=== PATIENT | female | born 1945 | race Caucasian/White ===

== ENCOUNTER 2018-04-01 06:10 | Day surgery (SDC) | payer MEDICARE, BC ==
[2018-04-01] MEDS ORDERED: PROVENTIL HFA 6.7GM INHALER (07:00)
[2018-04-01] MEDS ORDERED: PROPOFOL 40 ML (07:26)
[2018-04-01] MEDS ORDERED: ONDANSETRON 4 MG INJ (07:27)
[2018-04-01] MEDS ORDERED: MIDAZOLAM 1 MG/ML 2 ML INJ (07:27)
[2018-04-01] MEDS ORDERED: FENTAnyl 50 MCG/ML VIAL (07:27)
[2018-04-01] MEDS ORDERED: LIDOCAINE 2% (SDV) 5 ML INJ (07:27)
[2018-04-01] MEDS ORDERED: LABETALOL HCL 20MG INJ IV (07:30)
[2018-04-01] MEDS ORDERED: DIPHENHYDRAMINE 50 MG INJ IV (07:30)
[2018-04-01] MEDS ORDERED: ALBUTEROL 0.083% (NEB) 2.5 MG/3 ML AMP HHN (07:30)
[2018-04-01] MEDS ORDERED: HYDROmorphONE 1 MG/5 ML IV SYRINGE IV (07:30)
[2018-04-01] MEDS: BUPIVACAINE 0.5% (MPF) 30 ML INJ INJ (07:30)
[2018-04-01] MEDS ORDERED: morphine (1 MG/ML) 10ML SYRINGE IV ×2 (07:30)
[2018-04-01] MEDS ORDERED: FENTAnyl 50 MCG/ML VIAL IV ×2 (07:30)
[2018-04-01] MEDS ORDERED: MEPERIDINE 25 MG INJ IV (07:30)
[2018-04-01] MEDS ORDERED: OXYCODONE/ACETAMINOPHEN (5/325) TAB PO ×2 (07:30)
[2018-04-01 07:31] LABS: ADD MAN DIFF? NO
[2018-04-01 07:33] LABS: BASOPHILS % 0.3 % (0.0-2.0); EOSINOPHILS # 0.1 10^3/ul (0.0-0.5); EOSINOPHILS % 2.1 % (0.0-7.0); HEMATOCRIT 37.7 % (37.0-47.0); HEMOGLOBIN 13.1 g/dl (12.0-16.0); LYMPHOCYTES # 1.6 10^3/ul (0.8-2.9); MEAN CORPUSCULAR HGB CONC 34.7 g/dl (32.0-37.0); MEAN PLATELET VOLUME 10.2 fl (7.4-10.4); MONOCYTE # 0.7 10^3/ul (0.3-0.9); MONOCYTES % 10.2 % (0.0-11.0); NEUTROPHIL # 4.4 10^3/ul (1.6-7.5); NEUTROPHILS % 64.1 % (39.0-77.0); PLATELET COUNT 277 10^3/UL (140-415); RED BLOOD COUNT 3.97 10^6/ul (4.20-5.40); RED CELL DISTRIBUTION WIDTH 11.3 % (11.5-14.5)
[2018-04-01 07:33] LABS: WHITE BLOOD COUNT 6.8 10^3/ul (4.8-10.8)
[2018-04-01 07:50] LABS: ANION GAP 12 (5-13); BLOOD UREA NITROGEN 20 mg/dl (7-20); CALCIUM 9.4 mg/dl (8.4-10.2); CARBON DIOXIDE 28 mmol/L (21-31); CHLORIDE 100 mmol/L (97-110); CREATININE 0.71 mg/dl (0.44-1.00); GLUCOSE 89 mg/dl (70-220); INR 0.84; POTASSIUM 3.9 mmol/L (3.5-5.1); PROTIME 11.6 Sec (11.9-14.9); PT RATIO 0.9; SODIUM 140 mmol/L (135-144)
[2018-04-01] MEDS ORDERED: BUPIVACAINE 0.5% (SDV) 30 ML INJ (07:53)
[2018-04-01] MEDS ORDERED: FAMOTIDINE 20 MG INJ (07:56)
[2018-04-01] MEDS: MINERAL OIL LIGHT 10 ML VIAL TOP (08:00)
[2018-04-01] MEDS ORDERED: MINERAL OIL LIGHT 10 ML VIAL (08:07)
[2018-04-01] MEDS: HYDROmorphONE 1 MG/5 ML IV SYRINGE IV (09:19)
[2018-04-01] MEDS: ONDANSETRON 4 MG INJ IV (09:19)
[2018-04-01] MEDS: hydrALAzine 20 MG INJ IV (09:30)
== END 2018-04-01 11:09 | disposition home or self-care (01) ==
LOC: SDS 06:10
DX: S66.324A Laceration of extensor muscle, fascia and tendon of right ring finger at wrist and hand level, initial encounter (principal); S66.326A Laceration of extensor muscle, fascia and tendon of right little finger at wrist and hand level, initial encounter; W54.0XXA Bitten by dog, initial encounter; E78.5 Hyperlipidemia, unspecified; E03.9 Hypothyroidism, unspecified; J45.909 Unspecified asthma, uncomplicated
CPT/HCPCS: 15275; 71045; 80048; 85025; 85610; 85730